=== PATIENT | female | born 1990 | race Caucasian/White ===

== ENCOUNTER 2023-01-21 08:00 | Outpatient (CLI) | payer MEDICAID | END 2023-01-21 23:59 | disposition home or self-care (01) | LOC: LAB.S 08:00 | PROVIDERS: ATTEND Nurse Practitioner | DX: Z11.9 Encounter for screening for infectious and parasitic diseases, unspecified (principal) | CPT/HCPCS: 81599; 86480 ==

== ENCOUNTER 2024-07-12 08:00 | Outpatient (CLI) | payer MEDICAID | END 2024-07-12 23:59 | disposition home or self-care (01) | LOC: LAB.WC 08:00 | PROVIDERS: ATTEND Obstetrics & Gynecology | DX: N75.0 Cyst of Bartholin's gland (principal) | CPT/HCPCS: 87070; 87205 ==

== ENCOUNTER 2024-08-05 10:44 | Outpatient (CLI) | payer MEDICAID ==
--- NOTE | 2024-08-05 16:07 | Mammography Report ---
BILATERAL DIGITAL DIAGNOSTIC MAMMOGRAM 3D/2D: 08/05/2024 CLINICAL: Baseline exam. Diffuse right breast pain. No prior exams were available for comparison. The breasts are extremely dense, which lowers the sensitivity of mammography (category d />75% glandu lar tissue). No significant masses, calcifications, or other findings are seen in either breast. IMPRESSION: NEGATIVE There is no abnormality seen in the right breast to correspond with the diffuse pain, however, clinic al followup is recommended. There is no mammographic evidence of malignancy. Recommend annual screening mammograms beginning at age 40 if the patient is not at an increased risk for breast malignancy. Based on the Tyrer Cuzick model (a risk assessment model) the patient's lifetime risk is 17.4% and he r 10 year risk is 0.8%. According to the ACR, ACS, and NCCN guidelines, an annual breast MRI exam paul ng with mammogram is recommended if the patient's lifetime risk is 20% or greater. This exam was interpreted at Station ID: [id number]. NOTE: For mammograms, a report in lay terms will be sent to the patient. Approximately 15% of breast malignancies will not be visualized mammographically. In the management of a palpable breast mass, a negative mammogram must not discourage biopsy of a clinically suspicious lesion. Electronically Signed By: Michael Seth M.D. ar/:08/05/2024 15:42:16 letter sent: No_Letter ACR BI-RADS Category 1: Negative PARENCHYMAL PATTERN: (VD) - The breast(s) demonstrate(s) extremely dense parenchyma, limiting the sen sitivity of mammography. BI-RADS CATEGORY: (1) - 1 RECOMMENDATION: (ADDMAM) - Recommend additional mammographic views. no recall/no msg LATERALITY: (B)
== END 2024-08-05 10:45 | disposition home or self-care (01) ==
LOC: DI 10:44
PROVIDERS: ATTEND Nurse Practitioner
DX: N64.4 Mastodynia (principal)